=== PATIENT | female | born 1965 | race African-American/Black ===

== ENCOUNTER → 2016-09-03 | Outpatient (CLI) | payer MEDICAID | LOC: WI 11:18 | PROVIDERS: ATTEND Nurse Practitioner Psychiatric/Mental Health | DX: Z12.31 Encounter for screening mammogram for malignant neoplasm of breast (principal); Z53.8 Procedure and treatment not carried out for other reasons ==

== ENCOUNTER → 2016-09-23 | Outpatient (CLI) | payer MEDICAID | LOC: WI 09:41 | PROVIDERS: ATTEND Nurse Practitioner Psychiatric/Mental Health | DX: Z12.31 Encounter for screening mammogram for malignant neoplasm of breast (principal) | CPT/HCPCS: 77067; G0202 ==

== ENCOUNTER 2017-08-04 08:50 | Emergency (ER) | payer MEDICAID ==
[2017-08-04] MEDS ORDERED: IBUPROFEN 800 MG TABLET PO ONE (09:35)
--- NOTE | 2017-08-04 09:46 | ER Document Report ---
HPI - HPI Patient complains to provider of: fever, cough Onset: Other - Cough possibly for 4 days, fever today Onset/Duration: Persistent Quality of pain: No pain Pain Level: Denies Context: Patient presents with care provider from a assisted living facility. Patient has had a cough for unknown number of days, caregiver with patient last saw patient several days ago and is uncertain when the cough may have started. Fever just started today. Staff report patient did have diarrhea yesterday. Associated Symptoms: Nonproductive cough, Diarrhea, Fever. denies: Vomiting Exacerbated by: Denies Relieved by: Denies Similar symptoms previously: No Recently seen / treated by doctor: No - ROS ROS below otherwise negative: Yes Systems Reviewed and Negative: Yes All other systems reviewed and negative - CONSTITUTIONAL Constitutional: REPORTS: Fever - RESPIRATORY Respiratory: REPORTS: Coughing - GASTROINTESTINAL Gastrointestinal: REPORTS: Diarrhea. DENIES: Abdominal Pain, Patient vomiting - MUSCULOSKELETAL Musculoskeletal: DENIES: Extremity pain - DERM Skin Color: Normal Skin Problems: None Past Medical History - General Information source: Friend - Care provider, Transfer Record Cannot obtain history due to: Mentally challenged, Other - Social History Smoking Status: Never Smoker Frequency of alcohol use: None Drug Abuse: None Lives with: Care Home Family History: Reviewed & Not Pertinent Patient has suicidal ideation: No Patient has homicidal ideation: No - Medical History Medical History: Other - Intellectual and developmental delay, cerebral palsy Renal/ Medical History: Denies: Hx Peritoneal Dialysis Psychiatric Medical History: Reports: Hx Schizophrenia Past Surgical History: Reports: Hx Orthopedic Surgery - Immunizations Hx Diphtheria, Pertussis, Tetanus Vaccination: Yes Vertical Provider Document - CONSTITUTIONAL Agree With Documented VS: Yes Exam Limitations: Other - MR, pt non verbal General Appearance: WD/WN, No Apparent Distress - INFECTION CONTROL TRAVEL OUTSIDE OF THE [place] IN LAST 30 DAYS: No - HEENT HEENT: Atraumatic, Normal ENT Exam, Normocephalic - NECK Neck: Normal Inspection, Supple. negative: Lymphadenopathy-Left, Lymphadenopathy-Right - RESPIRATORY Respiratory: No Respiratory Distress, Chest Non-Tender, Other - shallow respirations. negative: Rales, Rhonchi, Wheezing O2 Sat by Pulse Oximetry: 95 - CARDIOVASCULAR Cardiovascular: Regular Rhythm, No Murmur, Tachycardia - GI/ABDOMEN Gastrointestinal: Abdomen Soft, Abdomen Non-Tender - BACK Back: Normal Inspection - MUSCULOSKELETAL/EXTREMETIES Musculoskeletal/Extremeties: MAEW - NEURO Level of Consciousness: Awake, Alert Motor/Sensory: No Motor Deficit - DERM Integumentary: Warm, Dry, No Rash Course - Re-evaluation Re-evalutation: 08/04/17 10:22 Patient does stay in a residential setting, will plan to cover with Tamiflu for likely influenza based on current CDC recommendations. Chest x-ray without any sign of pneumonia. Patient nontoxic in appearance, no increased respiratory effort or tachypnea. 08/04/17 10:25 - Vital Signs Vital signs: Temp Pulse Resp BP Pulse Ox 100.4 F 107 H 16 113/73 95 08/04/17 09:06 08/04/17 09:06 08/04/17 09:06 08/04/17 09:06 08/04/17 09:06 - Diagnostic Test Radiology reviewed: Reports reviewed Discharge - Discharge Clinical Impression: Cough, Flu-like symptoms Fever Qualifiers: Fever type: unspecified Qualified Code(s): R50.9 - Fever, unspecified Condition: Stable Disposition: HOME, SELF-CARE Instructions: Upper Respiratory Illness ([facility]) Additional Instructions: Return immediately for any new or worsening symptoms Followup with your primary care provider, call tomorrow to make a followup appointment Prescriptions: Oseltamivir Phosphate [Tamiflu 75 mg Capsule] 75 mg PO BID #10 capsule Referrals: CARLOS ENRIQUE KEENE MD [Primary Care Provider] - Follow up tomorrow
--- NOTE | 2017-08-04 10:09 | RADIOLOGY REPORT (SQ) ---
EXAM DESCRIPTION: CHEST PA/LAT COMPLETED DATE/TIME: 08/04/2017 9:59 am REASON FOR STUDY: fever, cough COMPARISON: July 2009 EXAM PARAMETERS: NUMBER OF VIEWS: two views TECHNIQUE: Digital Frontal and Lateral radiographic views of the chest acquired. RADIATION DOSE: NA LIMITATIONS: none FINDINGS: LUNGS AND PLEURA: No opacities, masses or pneumothorax. No pleural effusion. There is serene e minimal blunting of the left costophrenic angle consistent with pleural reaction. MEDIASTINUM AND HILAR STRUCTURES: No masses or contour abnormalities. HEART AND VASCULAR STRUCTURES: Heart normal size. No evidence for failure. BONES: No acute findings. HARDWARE: None in the chest. OTHER: No other significant finding. IMPRESSION: NO SIGNIFICANT RADIOGRAPHIC FINDING IN THE CHEST. TECHNICAL DOCUMENTATION: JOB ID: [id number] [employer]- All Rights Reserved
[2017-08-04 10:42] VITALS: BP 120/70
== END 2017-08-04 10:42 | disposition home or self-care (01) ==
LOC: ER 08:50
DX: R50.9 Fever, unspecified (principal); R05 Cough; R19.7 Diarrhea, unspecified
CPT/HCPCS: 99283; 71046; J3490